=== PATIENT | male | born 1945 | race Caucasian/White ===

== ENCOUNTER 2022-07-04 17:57 | Emergency (ER) | payer SELFPAY ==
--- OUTSIDE RECORDS SUMMARY | 2022-07-04 18:02 | XMS REPORT | Continuity of Care Document ---
:1945 Author Organization [facility] t Address [address] [place] [address] Care Team Providers Name Role Phone Erna MATSON, Frank Wiggins Primary Care Physician [phone] Erna MATSON, Frank Wiggins Attending Clinician Abe MATSON, Ken Aranda Attending Clinician Reshma MATSON, Dillan Dukes Attending Clinician Paresh Santana LCSW Attending Clinician Unavailable Suzy Worley MA Attending Clinician Unavailable Yaz MATSON, Tesfaye Aranda Attending Clinician Tang Arroyo Attending Clinician ELIZABETH ONEAL Attending Clinician [phone] [facility], PROVIDER Attending Clinician Unavailable Diomedes Moss Attending Clinician DIOMEDES MOSS M.D. Attending Clinician Unavailable Bolivar Ace Attending Clinician DR ELIZABETH ONEAL Attending Clinician Unavailable HARLAN DAHL Attending Clinician Unavailable DR ELIZABETH ONEAL Admitting Clinician Unavailable Payers Payer Name Policy Type Policy Number Effective Date Expiration Date S ource Problems Condition Condition Condition Status Onset Resolution Last Treating Co mments Source Name Details Category Date Date Treatment Clinician Date Tremor Tremor Disease Active Methodi 08-10 00:00: Hospita 00 l Parkinson' Parkinson' Disease Active M ethodi s disease s disease 1-12 st 00:00: Hospita 00 l RIGHT HIP RIGHT HIP Diagnosis Active 2017-072018-05-13 Memoria PAIN PAIN 0-11 10:04:00 l Active 07:00: [place] 05/09/2018 00 [facility] M25.551 - M25.551 - Diagnosis Active 2018-05-06 Memoria PAIN IN PAIN IN - 13:04:00 l RIGHT HIP RIGHT HIP 00:01: Jamee taylor T84.84XA - T84.84XA - 00 P P Active 04/16/2018 [facility]ID [facility] M80.0 - M80.0 - Diagnosis Active 2018-05-09 Memoria AGE-RELATE AGE-RELATE 04-03 16:10:00 l D D 00:01: Savage OSTEOPOROS OSTEOPOROS 00 IS WITH IS WITH Active 04/03/2018 OPID [place] Malignant Malignant Disease Active Met hodi neoplasm neoplasm 8-14 st of of 00:00: Hospita prostate prostate 00 l 726.10 - 726.10 - Diagnosis Active 2012-02-07 Memoria ROTATOR ROTATOR 7-10 08:58:00 l CUFF SY CUFF SY 00:01: Savage Active 00 02/06/2012 [facility] Right hip Right hip Problem Active [facility] pain pain Physici ans Pain due Pain due Problem Active UT to hip to hip Physici joint joint ans prosthesis prosthesis History of History of Problem Resolve UT hepatitis hepatitis d Phys ici ans History of History of Problem Resolve UT malignant malignant d Phys ici neoplasm neoplasm ans Stiffness Problem 2018-12-30 Me moria of right Stiffness 11:44:42 l hip, not of right Mike n elsewhere hip, not classified elsewhere classified 12/30/2018 [facility] Psoas Psoas Problem Active UT tendinitis tendinitis Ph ysici , , ans unspecifie unspecifie d hip d hip Psoas Psoas Problem Active UT tendinitis tendinitis Ph ysici of right of right ans side side Muscle Muscle Problem 2018-12-30 Branden krystal weakness weakness 11:44:42 l [facility] 12/30/2018 [facility] & Joint Difficulty Difficult Problem 2018-12-30 Memoria in y in 11:44:42 l walking, walking, Mike n not not elsewhere elsewhere classified classified 9 [facility] Presence Presence Problem 2018-11-16 Memoria of of 12:02:13 l artificial artificial He rmann hip joint, hip joint, bilateral bilateral 11/16/2018 [facility] History of Past Illness Condition Condition Condition Status Onset Resolution Last Treating Co mments Source Name Details Category Date Date Treatment Clinician Date Pain in Pain in Problem 2017-072018-12-30 2018-12-30 Memoria right hip right hip 08-18 11:44:42 11:44:42 l 06/18/2018 06:21: Mike bailey 12/30/[address] [facility] Pain due Pain due Problem 2017-072018-11-16 2018-11-16 Memoria to to 0-05 12:02:13 12:02:13 l internal internal 04:38: Mike bailey orthopedic orthopedic 42 prosthetic prosthetic devices, devices, implants implants and and grafts, grafts, initial initial encounter encounter 05/03/2018 11/16/2018 [facility] Allergies, Adverse Reactions, Alerts This patient has no known allergies or adverse reactions. Family History Family Member Diagnosis Comments Start Date Stop Date Source Natural father Dementia [facility] Natural father Prostate cancer [facility] Natural mother COPD [facility] Natural mother Melanoma [facility] Father Family history of [facility] malignant neoplasm Social History Social Habit Start Date Stop Date Quantity Comments Source Tobacco use and 2022-04-10 2022-04-10 Smokeless tobacco Me [facility]ist exposure 00:00:00 00:00:00 non-user Hospital Alcohol intake 2022-04-10 2022-04-10 Current drinker [facility] dist 00:00:00 00:00:00 of alcohol Hospital (finding) Alcohol Comment 2018-03-11 2018-03-11 daily Jain 00:00:00 00:00:00 Hospital Sex Ass[birth year] At [birth year] M [facility]ain 00:00:00 00:00:00 Hospital Smoking Status Start Date Stop Date Source Unknown if ever smoked [facility] Never smoked tobacco [facility] Medications Ordered Filled Start Stop Current Ordering Indication Dosage Frequency Signature Comments Components Source Medication Medication Date Date Medication? Clinician (SIG) Name Name meloxicam Yes [id number] 15mg Q24H Take 1 Methodi (MOBIC) 15 [id number] tablet (15 s t mg tablet 00:00: mg total) Hos april 00 by mouth l daily as needed for moderate pain. carbidopa-l Yes 2 tab PO Me thodi evodopa 12-[address] (Sinemet) 00:00: Hospita 25-100 mg 00 l per tablet carbidopa-l 2021- No 0.5 tabs M ethodi evodopa 09-[address] (Sinemet) 00:00: 00:00 1 week, 1 Ho spita 25-100 mg 00 :00 tab PO BID l per tablet for 1 week, then 1 tab PO TID ibuprofen 2021- No 400mg QD Take 400 Me thodi (ADVIL,MOTR 08-[address] IN) 200 MG 10:55: 00:00 mouth Hospi ta tablet 44 :00 daily. l ibuprofen 2021- No Take by Meth consuelo (Motrin IB) 08-[address] 200 MG 10:55: 00:00 Hospita tablet 44 :00 l azithromyci No take 2 Acce ssH n 250 mg 4-17 tablets by ealth tablet 00:00: Oral route 00 1 time per day on day 1. Then 1 tab daily on day 2-5. Bromfed DM No take 10 Acce ssH 2 mg-30 4-17 milliliter ealth mg-10 mg/5 00:00: s by Oral mL oral 00 route syrup every 6 hours PRN cough/truong estion Motrin IB Motrin IB Yes UT 200 MG Oral 200 MG Oral P hysici Tablet Tablet ans Vital Signs Vital Name Observation Time Observation Value Comments Source Systolic blood 2022-04-10 128 mm[Hg] [facility] pressure 20:27:00 Diastolic blood 2022-04-10 79 mm[Hg] [facility] pressure 20:27:00 Heart rate 2022-04-10 63 /min [facility] 20:27:00 Respiratory rate 2022-04-10 20 /min [facility] 20:27:00 Body weight 2022-04-10 78.926 kg [facility] 20:27:00 BMI 2022-04-10 26.46 kg/m2 [facility] 20:27:00 Body temperature 2021-12-19 36.67 Ebony [facility] 15:44:00 Oxygen saturation in 2021-12-19 96 /min [facility] Arterial blood by 15:44:00 Pulse oximetry Body height 2021-09-20 172.7 cm [facility] 20:16:00 Height 2018-05-06 68 [in_us] [facility] 09:45:00 Weight 2018-05-06 172 [lb_av] [facility] 09:45:00 Body Mass Index 2018-05-06 26.15 kg/m2 [facility] Calculated 09:45:00 Height 2018-04-15 68 [in_us] [facility] 16:37:00 Weight 2018-04-15 172 [lb_av] [facility] 16:37:00 Body Mass Index 2018-04-15 26.15 kg/m2 [facility] Calculated 16:37:00 Body height 2017-11-13 68.00 [in_us] [facility] 11:46:00 Patient Body Weight 2017-11-13 182.60 [lb_av] [facility] 11:46:00 Intravascular 2017-11-13 112 mm[Hg] [facility] Systolic 11:46:00 Intravascular 2017-11-13 61 mm[Hg] [facility] Diastolic 11:46:00 Heart Beat 2017-11-13 75 /min [facility] 11:46:00 Body Temperature 2017-11-13 97.10 [degF] [facility] 11:46:00 Respiratory Rate 2017-11-13 18 /min [facility] 11:46:00 Body mass index 2017-11-13 27.80 kg/m2 [facility] 11:46:00 Body height 2016-01-11 68.00 [in_us] [facility] 11:48:00 Patient Body Weight 2016-01-11 188.60 [lb_av] [facility] 11:48:00 Intravascular 2016-01-11 137 mm[Hg] [facility] Systolic 11:48:00 Intravascular 2016-01-11 85 mm[Hg] [facility] Diastolic 11:48:00 Heart Beat 2016-01-11 64 /min [facility] 11:48:00 Body Temperature 2016-01-11 97.70 [degF] [facility] 11:48:00 Respiratory Rate 2016-01-11 16 /min [facility] 11:48:00 Body mass index 2016-01-11 28.70 kg/m2 [facility] 11:48:00 Body height 2015-12-06 68.00 [in_us] [facility] 10:18:00 Patient Body Weight 2015-12-06 190.00 [lb_av] [facility] 10:18:00 Intravascular 2015-12-06 126 mm[Hg] [facility] Systolic 10:18:00 Intravascular 2015-12-06 68 mm[Hg] [facility] Diastolic 10:18:00 Heart Beat 2015-12-06 65 /min [facility] 10:18:00 Body Temperature 2015-12-06 96.20 [degF] [facility] 10:18:00 Respiratory Rate 2015-12-06 16 /min [facility] 10:18:00 Body mass index 2015-12-06 28.90 kg/m2 [facility] 10:18:00 Procedures Procedure Date / Time Performing Clinician Source Performed NM BRAIN SPECT W I 123 2021-09-07 [facility] MRI BRAIN WO CONTRAST 2021-09-07 14:29:28 [facility] CERULOPLASMIN LEVEL 2021-08-17 15:00:00 [facility] COPPER LEVEL, SERUM 2021-08-17 15:00:00 [facility] US HEPATIC 2021-08-12 14:40:49 Frank Umanzor [facility] COMPREHENSIVE METABOLIC 2021-08-04 17:54[facility] PANEL GGT 2021-08-04 17:54:00 AudeliaFrank parker [facility] HEPATITIS ACUTE PANEL 2021-08-04 17:54:00 [facility] CBC WITH PLATELET AND 2021-08-04 17:54:00 [facility] DIFFERENTIAL XR KNEE AP STANDING 2021-07-07 16:27:04 Tesfaye Mukherjee [facility] BILATERAL XR KNEE 3 VW LEFT 2021-07-07 16:26[facility] [place] ARTHROCENTESIS 2021-07-07 16:00:00 Yaz Tesfaye [facility] ASPIR&/INJ MAJOR JT/BURSA W/O US Physical Therapy 2018-05-06 00:00:00 [facility] Bone scan 3 phase 2018-04-15 00:00:00 [facility] [id number] History of Hip [facility] Replacement History of Shoulder [facility] Plan of Care Planned Activity Planned Date Details Comments Source Future Scheduled 2022-06-01 HEPATITIS B VACCINES [facility] Test 05:03:20 (1 of 3 - 3-dose series) [code = HEPATITIS B VACCINES (1 of 3 - 3-dose series)] Future Scheduled 2022-06-01 SHINGLES VACCINES (1 [facility] Test 05:03:20 of 2) [code = SHINGLES VACCINES (1 of 2)] Future Scheduled 2022-06-01 65+ [facility] 05:[facility]20 VACCINE (1 - PCV) [code = 65+ PNEUMOCOCCAL VACCINE (1 - PCV)] Future Scheduled 2022-06-01 COVID-19 VACCINE (3 - [facility] Test 05:03:20 Pfizer risk series) [code = COVID-19 VACCINE (3 - Pfizer risk series)] Future Scheduled 2022-06-01 INFLUENZA VACCINE [facility] Test 05:03:20 [code = INFLUENZA VACCINE] Encounters Start End Encounter Admission Attending Care Care Encounter Source Date/Time Date/Time Type Type Clinicians Facility Department ID 2022-04-10 2022-04-10 Office Braunreiter 1.2.840.1 [id number] Methodi 15:30:00 16:29:17 Visit , Frank Wiggins 93963.1.1 555 s t 3.430.2.7 Hospit a .3.779896 l .8 2022-04-10 2022-04-10 Travel 1.2.840.1 1.2.018.581 [id number] Methodi 00:00:00 00:00:[address] 3.430.2.7 0.2.7.3.698 Ho spita .3.353608 084.8 l .8 2022-04-10 2022-04-10 Outpatient [facility] [id number] Peak 00:00:00 00:00:00 , FRANK [address] 2022-04-05 2022-04-05 Travel 1.2.840.1 1.2.355.242 [id number] Methodi 00:00:00 00:00:[address] 3.430.2.7 0.2.7.3.698 Ho spita .3.736912 084.8 l .8 2021-12-28 2021-12-28 [facility] Abe, 1.2.840.1 [id number] Methodi 10:25:00 10:45:14 ne Ken C. 28394.1.[address] 3.430.2.7 Hospit a .3.532004 l .8 2021-12-28 2021-12-28 Outpatient [facility] [id number] Peak 00:00:00 00:00:00 KEN [address] 2021-12-19 2021-12-19 [facility] 1.2.840.1 [id number] Methodi 10:30:00 11:55:42 Encounter Dillan Ernst 42238.1.[address] 3.430.2.7 Hospit a .3.922233 l .8 2021-12-19 2021-12-19 Travel 1.2.840.1 1.2.874.200 [id number] [id number] Methodi 00:00:00 00:00:[address] 3.430.2.7 0.2.7.3.698 Ho spita .3.312547 084.8 l .8 2021-12-19 2021-12-19 Outpatient [facility] [id number] Peak 00:00:00 00:00:00 DILLAN [address] 2021-09-22 2021-09-22 Social Esther, 1.2.840.1 [id number] Methodi 00:00:00 00:00:00 Work Paresh 19984.1.[address] 3.430.2.7 Hospit a .3.525998 l .8 2021-09-20 2021-09-20 Office [facility], 1.2.840.1 [id number] Methodi 14:10:00 14:40:03 Visit Ken Ayala50.1.[address] 3.430.2.7 Hospit a .3.422694 l .8 2021-09-20 2021-09-20 Travel 1.2.840.1 1.2.470.797 [id number] [id number] Methodi 00:00:00 00:00:[address] 3.430.2.7 0.2.7.3.698 spita .3.431379 084.8 l .8 2021-09-20 2021-09-20 [facility] [id number] Peak 00:00:00 00:00:[address] KEN [address] 2021-09-09 2021-09-09 Telephone Worley, 1.2.840.1 [id number] Methodi 00:00:00 00:00:[address] 3.430.2.7 Hospit a .3.915478 l .8 2021-09-07 2021-09-[address] [facility], 1.2.840.1 [id number] Methodi 14:25:56 23:59:00 Encounter Ken Aranda 44667.1.[address] 3.430.2.7 Hospit a .3.500679 l .8 2021-09-07 2021-09-[address] [facility], 1.2.840.1 [id number] Methodi 07:40:09 14:24:00 Encounter Ken Aranda 75183.1.[address] 3.430.2.7 Hospit a .3.468902 l .8 2021-09-07 2021-09-[address] [facility], 1.2.840.1 [id number] Methodi 07:39:55 07:39:55 Encounter Ken Aranda 68921.1.[address] 3.430.2.7 Hospit a .3.559698 l .8 2021-09-07 2021-09-07 Travel 1.2.840.1 1.2.868.782 1129 [id number] Methodi 00:00:00 00:00:[address] 3.430.2.7 0.2.7.3.698 spita .3.065231 084.8 l .8 2021-09-07 2021-09-07 Outpatient [facility] [id number] [address] [place] [address] 00:00:00 00:00:00 KEN [address] 2021-09-07 2021-09-07 [facility] [id number] [address] [place] [address] 00:00:00 00:00:00 KEN [address] 2021-09-07 2021-09-07 Outpatient [facility] [id number] [address] [place] [address] 00:00:00 00:00:00 KEN [address] 2021-08-25 2021-08-25 [facility], 1.2.840.1 [id number] Methodi 00:00:00 00:00:[address] 3.430.2.7 Hospit a .3.440088 l .8 2021-08-12 2021-08-12 [facility] 1.2.840.1 [id number] Methodi 08:10:44 23:59:00 Frank Lloyd 02842.1.[address] 3.430.2.7 Hospit a .3.117000 l .8 2021-08-12 2021-08-12 Travel 1.2.840.1 1.2.897.034 [id number] Methodi 00:00:00 00:00:[address] 3.430.2.7 0.2.7.3.698 Ho spita .3.557363 084.8 l .8 2021-08-12 2021-08-12 Outpatient [facility] [id number] Peak 00:00:00 00:00:00 FRANK [address] 2021-08-10 2021-08-10 Office [facility], 1.2.840.1 [id number] Methodi 12:55:00 13:27:13 Visit Ken Rosi 46090.1.[address] 3.430.2.7 Hospit a .3.548666 l .8 2021-08-10 2021-08-10 Travel 1.2.840.1 1.2.339.448 6345 [id number] Methodi 00:00:00 00:00:[address] 3.430.2.7 0.2.7.3.698 Ho spita .3.427121 084.8 l .8 2021-08-10 2021-08-10 Outpatient [facility] [id number] Peak 00:00:00 00:00:00 KEN [address] 2021-08-04 2021-08-04 Office [facility] 1.2.840.1 [id number] Methodi 10:20:00 11:34:08 Visit , Frank Wiggins 70458.1.1 752 s t 3.430.2.7 Hospit a .3.246921 l .8 2021-08-04 2021-08-04 Travel 1.2.840.1 1.2.039.542 3525 [id number] Methodi 00:00:00 00:00:[address] 3.430.2.7 0.2.7.3.698 Ho spita .3.061578 084.8 l .8 2021-08-04 2021-08-04 Outpatient [facility] [id number] Peak 00:00:00 00:00:00 FRANK [address] 2021-07-07 2021-07-07 Office Sitter, 1.2.840.1 [id number] Methodi 10:00:00 10:59:53 Visit Tesfaye ReinaCalderon 10870.1.1 130 s t 3.430.2.7 Hospit a .3.521623 l .8 2021-07-07 2021-07-07 Outpatient SITTER, [facility] [id number] Peak 00:00:00 00:00:00 TESFAYE 130 Method i 2021-07-07 2021-07-07 Outpatient SITTER, [facility] [id number] Peak 00:00:00 00:00:00 TESFAYE 857 Method i 2021-07-07 2021-07-07 Outpatient SITTER, [facility] [id number] 553 Peak 00:00:00 00:00:00 TESFAYE 868 Method i 2021-07-06 2021-07-06 Travel 1.2.840.1 1.2.117.471 [id number] Methodi 00:00:00 00:00:[address] 3.430.2.7 0.2.7.3.698 Ho spita .3.401015 084.8 l .8 2021-07-04 2021-07-04 Travel 1.2.840.1 1.2.183.865 8269 [id number] Methodi 00:00:00 00:00:[address] 3.430.2.7 0.2.7.3.698 Ho spita .3.569592 084.8 l .8 2021-06-20 2021-06-20 [facility] [id number] Peak 00:00:00 00:00:00 DILLAN 169 Method i 2021-05-03 2021-05-03 Outpatient [facility] [id number] Peak 00:00:00 00:00:00 083 Method i 2021-05-03 2021-05-03 [facility] [id number] Peak 00:00:00 00:00:00 DILLAN [address] 2021-05-02 2021-05-02 Outpatient [facility] [id number] 896 Peak 00:00:00 00:00:[address] 2021-04-29 2021-04-29 Outpatient RESHMA [facility] [id number] Peak 00:00:00 00:00:00 DILLAN [address] 2021-04-29 2021-04-29 Outpatient [facility] [id number] 896 Peak 00:00:00 00:00:[address] 2021-04-28 2021-04-28 Outpatient [facility] [id number] 896 Peak 00:00:00 00:00:[address] 2021-04-28 2021-04-28 Outpatient RESHMA [facility] [id number] Peak 00:00:00 00:00:00 DILLAN [address] 2021-04-27 2021-04-27 Outpatient [facility] [id number] 896 Peak 00:00:00 00:00:[address] 2021-04-26 2021-04-26 Outpatient [facility] [id number] 896 Peak 00:00:00 00:00:[address] 2021-04-25 2021-04-25 Outpatient [facility] [id number] 896 Peak 00:00:00 00:00:[address] 2021-04-22 2021-04-22 Outpatient [facility] [id number] Peak 00:00:00 00:00:[address] 2021-04-21 2021-04-21 Outpatient RESHMA, [facility] [id number] Peak 00:00:00 00:00:00 DILLAN [address] 2021-04-21 2021-04-21 Outpatient [facility] [id number] Peak 00:00:00 00:00:[address] 2021-04-20 2021-04-20 Outpatient [facility] [id number] 896 Peak 00:00:00 00:00:[address] 2021-04-19 2021-04-19 Outpatient [facility] [id number] 896 Peak 00:00:00 00:00:[address] 2021-04-18 2021-04-18 Outpatient [facility] [id number] 896 Peak 00:00:00 00:00:[address] 2021-04-15 2021-04-15 Outpatient [facility] [id number] 896 Peak 00:00:00 00:00:[address] 2021-04-15 2021-04-15 Outpatient RESHMA, [facility] [id number] Peak 00:00:00 00:00:00 DILLAN [address] 2021-04-14 2021-04-14 Outpatient [facility] [id number] 896 Peak 00:00:00 00:00:[address] 2021-04-13 2021-04-13 Outpatient [facility] [id number] 896 Peak 00:00:00 00:00:[address] 2021-04-12 2021-04-12 Outpatient [facility] [id number] 896 Peak 00:00:00 00:00:[address] 2021-04-11 2021-04-11 Outpatient [facility] [id number] 896 Peak 00:00:00 00:00:[address] 2021 2021 Outpatient [facility] [id number] 896 Peak 00:00:00 00:00:[address] 2021-04-07 2021-04-07 Outpatient [facility] [id number] 896 Peak 00:00:00 00:00:[address] 2021-04-07 2021-04-07 Outpatient RESHMA, [facility] [id number] Peak 00:00:00 00:00:00 DILLAN [address] 2021-04-06 2021-04-06 Outpatient [facility] [id number] 896 Peak 00:00:00 00:00:[address] 2021-04-05 2021-04-05 Outpatient [facility] [id number] 896 Peak 00:00:00 00:00:[address] 2021-04-01 2021-04-01 Outpatient [facility] [id number] 896 Peak 00:00:00 00:00:[address] 2021-03-31 2021-03-31 Outpatient [facility] [id number] 896 Peak 00:00:00 00:00:[address] 2021-03-31 2021-03-31 Outpatient RESHMA [facility] [id number] Peak 00:00:00 00:00:00 DILLAN [address] 2021-03-30 2021-03-30 Outpatient RESHMA [facility] [id number] 424 Peak 00:00:00 00:00:00 DILLAN [address] 2021-03-30 2021-03-30 Outpatient [facility] [id number] 896 Peak 00:00:00 00:00:[address] 2021-03-29 2021-03-29 Outpatient [facility] [id number] 896 Peak 00:00:00 00:00:[address] 2021-03-28 2021-03-28 Outpatient [facility] [id number] 896 Peak 00:00:00 00:00:[address] 2021-03-25 2021-03-25 Outpatient [facility] [id number] 896 Peak 00:00:00 00:00:[address] 2021-03-24 2021-03-24 Outpatient [facility] [id number] 896 Peak 00:00:00 00:00:[address] 2021-03-24 2021-03-24 Outpatient RESHMA [facility] [id number] 479 Peak 00:00:00 00:00:00 DILLAN [address] 2021-03-23 2021-03-23 Outpatient [facility] [id number] 896 Peak 00:00:00 00:00:[address] 2021-03-22 2021-03-22 Outpatient [facility] [id number] 896 Peak 00:00:00 00:00:[address] 2021-03-21 2021-03-21 Outpatient [facility] [id number] 896 Peak 00:00:00 00:00:[address] 2021-03-18 2021-03-18 Outpatient [facility] [id number] 896 Peak 00:00:00 00:00:[address] 2021-03-17 2021-03-17 Outpatient [facility] [id number] 896 Peak 00:00:00 00:00:[address] 2021-03-17 2021-03-17 Outpatient SHKEDY, [facility] [id number] 541 Peak 00:00:00 00:00:00 DILLAN [address] 2021-03-16 2021-03-16 Outpatient [facility] [id number] 896 Peak 00:00:00 00:00:[address] [facility] [address] [facility] 2021-03-15 2021-03-15 Outpatient [facility] [id number] [place] 00:00:00 00:00:[address] [facility] [address] [facility] 2021-03-14 2021-03-14 Outpatient [facility] [id number] 896 [place] 00:00:00 00:00:[address] [facility] [address] [facility] 2021-03-11 2021-03-11 Outpatient [facility] [id number] 896 [place] 00:00:00 00:00:[address] [facility] [address] [facility] 2021-03-10 2021-03-10 Outpatient [facility] [id number] 896 [place] 00:00:00 00:00:[address] [facility] [address] [facility] 2021-03-10 2021-03-10 Outpatient SHKEDY, [facility] [id number] 086 [place] 00:00:00 00:00:00 DILLAN [address] [facility] 2021-03-09 2021-03-09 Outpatient [facility] [id number] 896 [place] 00:00:00 00:00:[address] [facility] [address] [facility] 2021-03-01 2021-03-02 Outpatient SHKEDY, [facility] [id number] [address] 00:00:00 00:00:00 DILLAN [address] [facility] 2021-03-01 2021-03-01 Outpatient SHKEDY, [facility] [id number] [address] 00:00:00 00:00:00 DILLAN [address] [facility] 2021-01-19 2021-01-19 Outpatient SHKEDY, [facility] [id number] [address] 00:00:00 00:00:00 DILLAN [address] [facility] 2021-01-12 2021-01-12 Outpatient SHKEDY, [facility] [id number] [address] 00:00:00 00:00:00 [place] [address] [facility] 2021-01-12 2021-01-12 Outpatient SHKEADORE, [facility] [id number] [place] 00:00:00 00:00:00 DILLAN 848 Method i 2021-01-04 2021-01-04 Outpatient SHMAGALI, [facility] [id number] 00:00:00 00:00:00 DILLAN [address] 2021-01-04 2021-01-04 Outpatient SHMAGALI, [facility] [id number] 00:00:00 00:00:00 DILLAN [address] 2020-06-03 2020-06-04 Outpt Diag nullFlavo [facility] [id number] Memoria 21:33:00 05:59:00 Services r Outpatient 03 l Imaging [place] 2020-06-03 2020-06-04 Outpt Diag nullFlavo [facility] [id number] Memoria 21:33:00 05:59:00 Services r Outpatient 03 l Imaging [place] 2020-06-03 2020-06-03 Outpatient Cruz, MH29 [id number] 15:33:00 23:59:00 Beckwith Naweed 03 2018-09-24 2018-09-24 Outpatient ELIZABETH ONEAL [facility] [id number] AccessH 00:00:00 00:00:00 e9-44df-910 i54-0415-p [facility] 4-5m5o0oi93 ca2-76444a c82 2fdc3f 2018-09-03 2018-09-03 Outpatient [facility] 149 [id number] Access 00:00:00 00:00:00 H, PROVIDER vero [facility] 2018-09-03 2018-09-03 Outpatient [facility] [id number] AccessH 00:00:00 00:00:00 H, PROVIDER e2-0df2-77s ec7-48 f9-b [facility] 0-gm6wbc053 f2l-558i15 0f4 5bd3da 2018-09-03 2018-09-03 Outpatient ELIZABETH ONEAL [facility] apfd11wc-l0 [id number] AccessH 00:00:00 00:00:00 e9-44df-910 97d-43cb-8 [facility] 4-0j3h2ut54 e52-s765qm c82 7d6a94 2018-05-13 2018-06-12 OP Therapy nullFlavo [facility] [id number] Memoria 13:30:00 05:59:00 Patients r Man Wan 2018-05-13 2018-06-12 OP Therapy nullFlavo SMR [id number] Memoria 13:30:00 05:59:00 Patients r Man 01 gigi [place] 2018-05-13 2018-06-11 Outpatient Hola, 2.16.840. 2.16.840.1 . [id number] 08:30:00 23:59:00 Diomedes [id number] 3.615.70 5.70 2018-05-06 2018-05-06 Appointqasim [facility] [id number] [place] 09:15:00 09:15:00 t; Quentin GASPAR [facility] patrizia GASPAR M.D. 2018-04-29 2018-04-30 Outpt Diag nullFlavo [facility] [id number] Memoria 13:50:00 04:59:00 Services r Outpatient 02 l [facility] 2018-04-29 2018-04-30 Outpt Diag nullFlavo [facility] [id number] Memoria 13:50:00 04:59:00 Services r Outpatient 02 l [facility] 2018-04-29 2018-04-29 Outpatient Hola, 2.16.840. 2.16.840.1 . [id number] 08:50:00 23:59:00 Diomedes [id number] 3.615.30 5.30 2018-04-15 2018-04-[facility] [id number] [place] 10:30:00 10:30:00 t; Quentin GASPAR [facility] patrizia GASPAR M.D. 2018 2018 Outpt Diag nullFlavo [facility] [id number] Memoria 14:20:00 14:20:00 Services r Outpatient 01 l [facility] 2018 2018 Outpt Diag nullFlavo [facility] [id number] Memoria 14:20:00 14:20:00 Services r Outpatient 01 l Imaging [place] 2018 2018 Outpatient Db, MH29 MH29 [id number] 09:20:00 09:20:00 Bolivar Villatoro 2017-11-14 2017-11-14 Outpatient [facility] 149 [id number] AccessH 00:00:00 00:00:00 H, PROVIDER ea lth 2017-11-14 2017-11-14 Outpatient [facility] [id number] [id number] AccessH 00:00:00 00:00:00 H, PROVIDER e2-8uj8-15n 3b1-40 51-a ealth 0-hj8vnr219 284-597ffb 0f4 [id number] 2017-11-14 2017-11-14 Outpatient ELIZABETH ONEAL [facility] yvwv13ep-[id number] AccessH 00:00:00 00:00:00 e9-44df-910 t1a-5p68-9 ealth 4-1i4h7zx00 a2u-7k1fq1 c82 0dd0eb 2017-11-14 2017-11-14 Outpatient KIMMY, ELIZABETH [facility] 0kg9s4d8-4u [id number] AccessH 00:00:00 00:00:00 e2-8ns9-57p 083-43ba-9 ealth 0-ts1gtf507 w0k-56242w 0f4 29c2ea 2017-11-13 2017-11-13 Outpatient ELIZABETH FARLEY [facility] RAD 1000 [id number] [place] 12:25:00 23:59:00 Medica l Center 2017-11-13 2017-11-13 Outpatient LEIZABETH ONEAL [facility] 1oc2z3u7-3q [id number] AccessH 11:46:00 11:46:00 e2-7eb0-57o r87-71tb-7 ealth 0-vj9lzd617 99b-edccbe 0f4 [id number] 2017-11-13 2017-11-13 Outpatient [facility] 149 [id number] AccessH 00:00:00 00:00:00 H, PROVIDER vero [facility] 2017-11-13 2017-11-13 Outpatient [facility] 4fk2l1r4-1e [id number] AccessH 00:00:00 00:00:00 H, PROVIDER e2-2ow7-56m fc3-41 43-b ealth 0-mb7szs598 8k8-2899rv 0f4 e02be6 2017-11-13 2017-11-13 Outpatient SHANKS, [facility] 7ti4a2j9-3d c7b [id number] AccessH 00:00:00 00:00:00 HARLAN e2-5yo9-39n bf8-48fc-9 ealt 0-us0fdw385 217-58b7a3 0f4 134ed0 2016-05-03 2016-05-03 Outpatient [facility] 149 [id number] AccessH 00:00:00 00:00:00 H, PROVIDER vero [facility] 2016-05-03 2016-05-03 Outpatient [facility] 5mt1o7l2-6y [id number] AccessH 00:00:00 00:00:00 H, PROVIDER perry-4xi0-31t 041-47 3e-b ealth 0-eq6chn933 a10-44x0o2 0f4 fcf67b 2016-05-02 2016-05-02 Outpatient SHANKS, [facility] 6ok4q1a8-7w [id number] [id number] AccessH 00:00:00 00:00:00 HARLAN e2-6tx6-30i l7q-997v-9 ealth 0-rk4vpt756 4s1-99aw72 0f4 hx556n 2016-04-29 2016-04-29 Outpatient SHANKS, HC 0fq8z3u9-7e [id number] AccessH 00:00:00 00:00:00 HARLAN e2-1ar8-88q 54a-459c-a ealth 0-ck2vom252 41f-3p464b 0f4 2c0ed0 2016-04-26 2016-04-26 Outpatient [facility] 149 [id number] AccessH 00:00:00 00:00:00 H, PROVIDER vero [facility] 2016-04-26 2016-04-26 Outpatient SHANKS, [facility] 6xg2i1n9-7d [id number] AccessH 00:00:00 00:00:00 HARLAN e2-8fc6-92a 0v0-7uq7-e ealth 0-ws6nro744 b68-l8f71a 0f4 9e81a6 2016-04-26 2016-04-26 Outpatient [facility] 1hk4l5c9-2i [id number] AccessH 00:00:00 00:00:00 H, PROVIDER e2-2mp1-26c 18f-4f 2f-8 ealth 0-st9tbg994 905-4ih399 0f4 11ccb4 2016-01-17 2016-01-17 Outpatient [facility] 149 [id number] AccessH 00:00:00 00:00:00 H, PROVIDER vero [facility] 2016-01-17 2016-01-17 Outpatient [facility] 7ix0h6e4-1h [id number] AccessH 00:00:00 00:00:00 H, PROVIDER e2-4vz8-72y e3f-42 4e-8 ealth 0-jz4ifq829 [id number] 0f4 385e2a 2016-01-17 2016-01-17 Outpatient SHANKS, [facility] 9tx2g2v8-5i b89 [id number] AccessH 00:00:00 00:00:00 HARLAN e2-2xm5-05b 6bf-45e9-a ealth 0-mg4bsf089 1a6-213rv8 0f4 g5126c 2016-01-14 2016-01-14 Outpatient SHANKS, [facility] 3eb8l9f7-5z a24 33l3b-6 AccessH 00:00:00 00:00:00 HARLAN e2-7fh8-58x 160-4db9-b ealth 0-lu0ovb441 7t2-4727v4 0f4 df3d09 2016-01-12 2016-01-12 Outpatient [facility] 149 [id number] AccessH 00:00:00 00:00:00 H, PROVIDER vero [facility] 2016-01-12 2016-01-12 Outpatient [facility] 1bg0r1h5-6z [id number] AccessH 00:00:00 00:00:00 H, PROVIDER e2-4qp9-16i 504-46 67-a ealth 0-as4gos519 761-d32aa1 0f4 94a1e9 2016-01-12 2016-01-12 Outpatient SHANKS, [facility] 9bv8y1y4-9b 3fd r3rj3-0 AccessH 00:00:00 00:00:00 HARLAN e2-2fa2-47t b71-8s96-0 ealth 0-bq0qfr094 370-acaebf 0f4 430a97 2016-01-11 2016-01-11 Outpatient SHANKS, [facility] 6yb5y3g4-4j marcelo p4347-r AccessH 11:48:00 11:48:00 HARLAN e2-8qq9-33i 495-4663-a ealth 0-gr7ysz933 2df-e90b07 0f4 [id number] 9703-06-14 2016-01-11 Outpatient [facility] 149 [id number] AccessH 00:00:00 00:00:00 H, PROVIDER vero [facility] 2016-01-11 2016-01-11 Outpatient [facility] 8zr3g6o9-0m [id number] AccessH 00:00:00 00:00:00 H, PROVIDER e2-7gw0-02z c58-4f a2-b ealth 0-bp0uml141 f39-h72116 0f4 5g656b 2015-12-06 2015-12-06 Outpatient SHANKS, [facility] 1sg1i9i6-4r e55 [id number] AccessH 10:18:00 10:18:00 HARLAN e2-0ut6-26u 862-4253-9 ealth 0-ji2mxb972 3g7-w55uz7 0f4 w32453 2015-12-06 2015-12-06 Outpatient [facility] 149 [id number] AccessH 00:00:00 00:00:00 H, PROVIDER vero sheppard 2015-12-06 2015-12-06 Outpatient [facility] 7vl1j4x8-4i [id number]-l AccessH 00:00:00 00:00:00 H, PROVIDER sarah7cv8-87r 287-48 51-b [facility] 0-bj1jlu283 699-966a30 0f4 305dde 2013-11-19 2013-11-19 Outpatient [facility] 149 [id number] AccessH 00:00:00 00:00:00 H, PROVIDER vero sheppard 2013-11-19 2013-11-19 Outpatient [facility] 0lb7y7c1-7n [id number] AccessH 00:00:00 00:00:00 H, PROVIDER sarah4kv5-42x c69-49 ef-9 [facility] 0-qt7flb606 n2j-tny8ln 0f4 z22080 2013-03-06 2013-03-06 Outpatient [facility] 149 [id number] AccessH 00:00:00 00:00:00 H, PROVIDER vero sheppard 2013-03-06 2013-03-06 Outpatient [facility] 3is8h2a0-1i [id number] AccessH 00:00:00 00:00:00 H, PROVIDER sarah9fb2-99t ebd-4e 26-b [facility] 0-hs8mru312 a54-j5679p 0f4 4ad3a7 2013-02-14 2013-02-14 Outpatient [facility] 149 [id number] AccessH 00:00:00 00:00:00 H, PROVIDER vero sheppard 2013-02-14 2013-02-14 Outpatient [facility] 9tn7l8m4-6f [id number]-f AccessH 00:00:00 00:00:00 H, PROVIDER immanuel2kn5-04c 3ee-44 02-8 [facility] 0-tt3udd466 q57-28955g 0f4 d64a07 2013-02-12 2013-02-12 Outpatient [facility] 149 [id number] AccessH 00:00:00 00:00:00 H, PROVIDER vero sheppard 2013-02-12 2013-02-12 Outpatient [facility] 6oq4n4m5-6h [id number] AccessH 00:00:00 00:00:00 H, PROVIDER e2-0kn9-76y e12-41 d5-a [facility] 0-vm5vjr444 673-k2481t 0f4 f04dc3 2013-02-11 2013-02-11 Outpatient [facility] 149 [id number] AccessH 00:00:00 00:00:00 H, PROVIDER ea [facility] 2013-02-11 2013-02-11 Outpatient [facility] 2gy1i3g7-0n [id number]-m AccessH 00:00:00 00:00:00 H, PROVIDER e2-2to1-57x ba4-4c db-9 [facility] 0-aa0qkz104 271-c5cc42 0f4 fq607x 2012-02-07 2012-02-07 OD JADA ANDREW [id number] Memoria 08:49:00 08:49:00 00 gigi Wan 2012-02-07 2012-02-07 OD [facility] [id number] Memoria 08:49:00 08:49:00 00 gigi Wan Results Test Description Test Time Test Comments Results Result Comments Source Ceruloplasmin level 2021-08-24 04:15:00 Test Item Value Reference Range Interpretation Comme nts Ceruloplasmin (test code = 2064-4) 35 mg/dL 18-36 RAC (test code = RAC) Performing Organization Information: Site ID: Name: [facility] Address: [address] [place] [address] Director: Dr. Jamal Rouse [facility], [id number] 04:15:00 Test Item Value Reference Range Interpretation Comments Copper (test See_Comment This test was code = developed and i ts 5631-7) analytical perf ormance characteristics have been determined by [employer] . It has not been cl eared or approved by theA. This assay has been validated pursu ant to the CLIA regula tions and is used for clinical purpos es. [Automated mess age] The system [employer] generated this result transmitted ref erence range: 70 - 175 mcg/dL. The ref erence range was not u sed to interpret this result as normal/abnor mal. RAC (test Performing code = RAC) Organization Information: Site ID: [facility] Name: [facility] Address: [address] [place] [address] Director: Andrea Zhang M.D. [facility] [id number] 14:11:00 Test Item Value Reference Interpretation Comments Range Glucose (test code = 95 mg/dL 65-99 2345-7) BUN (test code = 23 mg/dL 8-27 3094-0) Creatinine (test 0.72 mg/dL 0.76-1.27 L code = 2160-0) EGFR Non-Afr. 91 mL/min/1.73 See_Comment [Automated message] Indian (test code The syst em which = 2775) generated this result transmit ross reference range : >=59. The refer ence range was not u sed to interpret th is result as normal/abnormal . EGFR 105 mL/min/1.73 See_Comment In accorda nce with Indian (test code recommen dations from = 2774) the NKF-ASN Tas k force, [facility] is in the process of updating its eG FR calculation to the 2020 CKD-EPI creatinine equa tion that estimates kidney function without a race variable. [Auto mated message] The sy stem which generated this result transmit ross reference range : >=59. The refer ence range was not u sed to interpret th is result as normal/abnormal . BUN/creatinine ratio 10-24 H (test code = 3097-3) Sodium (test code = 143 mmol/L 109-380 8091-2) Potassium (test code 4.4 mmol/L 3.5-5.2 = 2823-3) Chloride (test code 105 mmol/L 96-106 = 2075-0) CO2 (test code = 22 mmol/L 20-29 2027-9) Calcium (test code = 9.4 mg/dL 8.6-10.2 42498-7) Protein (test code = 7.0 g/dL 6.0-8.5 2885-2) Albumin, S (test 4.3 g/dL 3.7-4.7 code = 1751-7) Globulin, total 2.7 g/dL 1.5-4.5 (test code = 64067-0) Albumin/globulin 1.2-2.2 ratio (test code = 1759-0) Total bilirubin 0.5 mg/dL 0.0-1.2 (test code = 1975-2) Alkaline phosphatase See_Comment Plea se note (test code = 6768-6) referen ce interval change [Autom ated message] The sy stem which generated this result transmit ross reference range : 44 - 121 IU/L. The reference range was not used to interpret this result as normal/abnormal . AST (test code = See_Comment [Automated message] 1920-8) The system [employer] generated this result transmit ross reference range : 0 - 40 IU/L. The reference range was not used to interpret this result as normal/abnormal . ALT (test code = See_Comment [Automated message] 1742-6) The system [employer] generated this result transmit ross reference range : 0 - 44 IU/L. The reference range was not used to interpret this result as normal/abnormal . PAUL (test code = Performed at: 01 PAUL) - [facility] [address] [id number] Director: Jose Medina MD, Phone: [phone] Lab Interpretation Abnormal (test code = 25544-6) [facility]2022-01-07 14:11:00 Test Item Value Reference Range Interpretation Comments GGT (test code See_Comment [Automated m essage] = 8794-2) The system [employer] generated this result transmit ross reference range : 0 - 65 IU/L. The reference range was not used to interpret this result as normal/abnormal . PAUL (test code Performed at: - = PAUL) [facility] [address] [id number] Director: Jose Medina MD, Phone: [phone] [facility] with platelet and pyffpgcbqktr5809-39-62 14:11:00 Test Item Value Reference Range Interpretation Comments WBC (test code = See_Comment [Automated 0590-2) message] The system which generated this result transmitted reference range : 3.4 - 10.8 x10E3/uL. The reference range was not used to interpret this result as normal/abnormal . RBC (test code = See_Comment [Automated 789-8) message] The system which generated this result transmitted reference range : 4.14 - 5.80 x10E6/uL. The reference range was not used to interpret this result as normal/abnormal . HGB (test code = 13.4 g/dL 13.0-17.7 718-7) HCT (test code = 39.0 % 37.5-51.0 4544-3) MCV (test code = 91 fL 79-97 787-2) MCH (test code = 31.2 pg 26.6-33.0 785-6) MCHC (test code = 34.4 g/dL 31.5-35.7 786-4) RDW (test code = 12.5 % 11.6-15.4 788-0) Platelet count (test See_Comment L [Autom ated code = 777-3) message] The system which generated this result transmitted reference range : 150 - 450 x10E3/uL. The reference range was not used to interpret this result as normal/abnormal . Neutrophils (test 79 % Not Estab. code = 770-8) Lymphocytes (test 10 % Not Estab. code = 736-9) Monocytes (test code 7 % Not Estab. = 5905-5) Eosinophils (test 3 % Not Estab. code = 713-8) Basophils (test code 0 % Not Estab. = 706-2) Neutrophils, absolute See_Comment [Auto mated (test code = 751-8) message] The system which generated this result transmitted reference range : 1.4 - 7.0 x10E3/uL. The reference range was not used to interpret this result as normal/abnormal . Lymphocytes, absolute See_Comment L [Auto mated (test code = 731-0) message] The system which generated this result transmitted reference range : 0.7 - 3.1 x10E3/uL. The reference range was not used to interpret this result as normal/abnormal . Monocytes, absolute See_Comment [Automa ross (test code = 742-7) message] The system which generated this result transmitted reference range : 0.1 - 0.9 x10E3/uL. The reference range was not used to interpret this result as normal/abnormal . Eosinophils, absolute See_Comment [Auto mated (test code = 711-2) message] The system which generated this result transmitted reference range : 0.0 - 0.4 x10E3/uL. The reference range was not used to interpret this result as normal/abnormal . Basophils, absolute See_Comment [Automa ross (test code = 704-7) message] The system which generated this result transmitted reference range : 0.0 - 0.2 x10E3/uL. The reference range was not used to interpret this result as normal/abnormal . Immature granulocytes 1 % Not Estab. (test code = 98813-3) Immature See_Comment [Automated granulocytes, message] The absolute (test code = system which 84528-0) generated this result transmitted reference range : 0.0 - 0.1 x10E3/uL. The reference range was not used to interpret this result as normal/abnormal . PAUL (test code = PAUL) Performed at: 01 - [facility] [id number] Director: Jose Medina MD, Phone: [phone] Lab Interpretation Abnormal (test code = 72559-2) [facility] acute [id number] 14:11:00 Test Item Value Reference Range Interpretation Comments Hepatitis A IgM Negative Negative (test code = 94625-4) Hepatitis B surface Negative Negative Ag (test code = 5196-1) Hepatitis B core IgM Negative Negative (test code = 21855-7) Hepatitis C Ab (test >11.0 See_Comment H Negat selvin: < 0.8 code = 84078-5) Indeterminat e: 0.8 - 0.9 Positive: > 0.9 The CDC recommends that a positive HCV antibody result be followed up wit h a HCV Nucleic Aci d Amplification t est (722905).Effe ctiv e October 10 2 Hepatitis Panel (4) will be made non-orderable. [employer] offers order code 1440 00 Acute Hepatitis . [Automated mess age] The system whic h generated this result transmit ross reference range : 0.0 - 0.9 s/co ratio. The reference range was not used to interpret this result as normal/abnormal . PAUL (test code = Performed at: PAUL) - [facility] [place], [place] [id number] Director: Jose Medina MD, Phone: [phone] Lab Interpretation Abnormal (test code = 56089-1) [facility] [id number] 12:50:32PA and lateral chest, 2 views.Location code: [id number] HISTORY: R05: COUGHCOMPARISON: NoneCOMMENTS:The lungs are clear and well inflated. The costophrenic angles aresharp. The cardiomediastinal silhouette is unremarkable. The bones are intact.IMPRESSION: No acute abnormality
[2022-07-04] MEDS ORDERED: HYDROCODONE/APAP 5/325 MG TAB ONE (18:23)
--- NOTE | 2022-07-04 18:40 | RAD REPORT ---
EXAM DESCRIPTION: RAD - Pelvis - 07/04/2022 6:21 pm CLINICAL HISTORY: Pelvic pain FINDINGS: Bilateral hip arthroplasties. Left femoral prosthesis is dislocated superior laterally. No fracture noted
[2022-07-04] MEDS ORDERED: MIDAZOLAM HCL 2 MG/2 ML INJ ONE ×2 (19:31→19:59)
[2022-07-04] MEDS ORDERED: ETOMIDATE 20 MG/10 ML VIAL IV ONE (19:32)
[2022-07-04] MEDS ORDERED: ONDANSETRON 4 MG/2 ML VIAL ONE (19:32)
[2022-07-04] MEDS ORDERED: NA CHLORIDE 0.9% 1,000 ML ONE (19:32)
--- NOTE | 2022-07-04 21:02 | EDPHYS ---
Physician Documentation [facility] Name: Ghassan Soria Age: 77 yrs Sex: Male : 1945 Arrival Date: 07/04/2022 Time: 18:05 Bed 9 Private MD: ED Physician HPI: 07/04 18:05 This 77 yrs old Male presents to ER via Unassigned with complaints of Hip Pain. snw 18:05 The patient or guardian reports decreased range of motion, pain. that occurred at home, snw sustained from pt had bilateral hip replacements at age 49yr. Pt was sitting in chair and felt like left hip came out The patient is not able to ambulate. Patient is not able to bear weight. The complaints affect the left leg. Onset: The symptoms/episode began/occurred suddenly, just prior to arrival. Associated signs and symptoms: Loss of consciousness: the patient experienced no loss of consciousness, Pertinent negatives: incontinence, weakness, trauma. Severity of symptoms: At their worst the symptoms were mild, moderate. The patient has experienced a previous episode, approximately 15 years ago. The patient has not recently seen a physician. Historical: - Allergies: 18:08 No Known Allergies; ss - PMHx: 18:08 Parkinson's disease; ss - PSHx: 18:08 bilateral hip replacement; ss - Immunization history:: Adult Immunizations unknown. - Social history:: Smoking status: Patient denies any tobacco usage or history of. ROS: 18:10 Constitutional: Negative for fever, chills, and weight loss, Eyes: Negative for injury, snw pain, redness, and discharge, ENT: Negative for injury, pain, and discharge, Neck: Negative for injury, pain, and swelling, Cardiovascular: Negative for chest pain, palpitations, and edema, Respiratory: Negative for shortness of breath, cough, wheezing, and pleuritic chest pain, Abdomen/GI: Negative for abdominal pain, nausea, vomiting, diarrhea, and constipation, Back: Negative for injury and pain, : Negative for injury, bleeding, discharge, and swelling, MS/Extremity: Negative for injury and deformity, felt like left hip replacement dislocated while sitting in his chair Skin: Negative for injury, rash, and discoloration, Neuro: Negative for headache, weakness, numbness, tingling, and seizure, Psych: Negative for depression, anxiety, suicide ideation, homicidal ideation, and hallucinations. Exam: 18:09 Constitutional: This is a well developed, well nourished patient who is awake, alert, snw and in no acute distress. Head/Face: Normocephalic, atraumatic. Eyes: Pupils equal round and reactive to light, extra-ocular motions intact. Lids and lashes normal. Conjunctiva and sclera are non-icteric and not injected. Cornea within normal limits. Periorbital areas with no swelling, redness, or edema. ENT: Nares patent. No nasal discharge, no septal abnormalities noted. Tympanic membranes are normal and external auditory canals are clear. Oropharynx with no redness, swelling, or masses, exudates, or evidence of obstruction, uvula midline. Mucous membranes moist. Neck: Trachea midline, no thyromegaly or masses palpated, and no cervical lymphadenopathy. Supple, full range of motion without nuchal rigidity, or vertebral point tenderness. No Meningismus. Chest/axilla: Normal chest wall appearance and motion. Nontender with no deformity. No lesions are appreciated. Cardiovascular: Regular rate and rhythm with a normal S1 and S2. No gallops, murmurs, or rubs. Normal PMI, no JVD. No pulse deficits. Respiratory: Lungs have equal breath sounds bilaterally, clear to auscultation and percussion. No rales, rhonchi or wheezes noted. No increased work of breathing, no retractions or nasal flaring. Abdomen/GI: Soft, non-tender, with normal bowel sounds. No distension or tympany. No guarding or rebound. No evidence of tenderness throughout. Back: No spinal tenderness. No costovertebral tenderness. Full range of motion. Skin: Warm, dry with normal turgor. Normal color with no rashes, no lesions, and no evidence of cellulitis. Neuro: Awake and alert, GCS 15, oriented to person, place, time, and situation. Cranial nerves II-XII grossly intact. Motor strength 5/5 in all extremities. Sensory grossly intact. Cerebellar exam normal. Normal gait. Psych: Awake, alert, with orientation to person, place and time. Behavior, mood, and affect are within normal limits. 18:09 Musculoskeletal/extremity: Extremities: grossly normal except: noted in the left hip: decreased ROM, ROM: limited active range of motion due to pain, limited passive range of motion due to pain, Circulation is intact in all extremities. Sensation intact. Vital Signs: 18:05 BP 120 / 71; Pulse 63; Resp 18; Temp 98.1(O); Pulse Ox 100% on R/A; Weight 74.84 kg; ss 18:33 BP 124 / 65; Pulse 64; Resp 16; Pulse Ox 100% on R/A; em6 20:30 BP 120 / 66; Pulse 68; Resp 16; Pulse Ox 100% on 3 lpm NC; em6 21:00 BP 116 / 68; Pulse 70; Resp 16; Pulse Ox 100% on R/A; em6 Procedures: 20:18 Reduction: of the left hip, using traction, manipulation, Patient tolerated well. Post snw reduction film - reveals normal alignment. per Dr. Stock. Moderate sedation: Pre-procedure assessment: the patient has been NPO 18 hour(s) prior to arrival, Monitoring during procedure: environmental monitoring technician, continuous pulse oximetry, nurse at bedside at all times, Medications employed: Etomidate, Versed, 4 mg(s), Post-procedure assessment: the patient is mildly sedated, Respiratory status: even and unlabored, a reversal agent was not used. MDM: 18:05 Patient medically screened. snw 19:22 Data reviewed: vital signs, nurses notes. Data interpreted: Pulse oximetry: on room air snw is 100 %. Interpretation: normal. Counseling: I had a detailed discussion with the patient and/or guardian regarding: the historical points, exam findings, and any diagnostic results supporting the discharge/admit diagnosis. 19:23 Physician consultation: Raf Stock MD was called at 18:45, was contacted at snw 19:00, regarding discussed x-ray findings of dislocation of left mechanical hip. Pt to have conscious sedation for Dr. Stock to perform reduction , in the emergency department to see patient at 19:45. 20:00 ED course: Telemetry monitors on, suction at bedside, O2 at 2L via N/C placed. Dr. herrera Azul and Dr. Stock at bedside. Conscious sedation begun post consent. Left hip manipulated per Dr. Stock, leg lengthened and with full ROM. Post reduction x-ray obtained. + reduction accomplish. RT at bedside with pt. . 20:18 Special discussion: Based on the history and exam findings, there is no indication for snw further emergent testing or inpatient evaluation. I discussed with the patient/guardian the need to see the orthopedic surgeon for further evaluation of the symptoms. 21:40 ED course: in discussion of case, pt actually rec'd all 6mg versed taken to room and a snw total of 11mg etomidate. 07/04 18:08 Order name: XRAY Pelvis; Complete Time: 18:40 snw 07/04 20:55 Order name: Hip Left 1 View EDMS 07/04 19:17 Order name: Conscious Sedation; Complete Time: 19:47 snw 07/04 19:17 Order name: Surgical Consent; Complete Time: 19:47 snw 07/04 19:17 Order name: IV Saline Lock; Complete Time: 19:47 snw 07/04 19:22 Order name: Suction; Complete Time: 19:47 snw 07/04 19:22 Order name: Oxygen Per Protocol; Complete Time: 19:47 snw 07/04 21:01 Order name: Misc. Order: Ambulate with assistance; Complete Time: 21:22 snw Administered Medications: 18:33 Not Given (Patient Refused): Sims (HYDROcodone-acetaminophen) 5 mg-325 mg 1 tabs PO em6 once 19:40 Drug: Zofran (Ondansetron) 4 mg Route: IVP; Site: left antecubital; em6 20:39 Follow up: Response: No adverse reaction em6 19:40 Drug: NS 0.9% 1000 ml Route: IV; Rate: 75 ml/hr; Site: left antecubital; em6 20:38 Follow up: Response: No adverse reaction; IV Status: Completed infusion; IV Intake: em6 1000ml ; Dr. elder ramos order to give the fluids bolus. 19:56 Drug: Midazolam 4 mg Route: IVP; Site: left antecubital; em6 20:39 Follow up: Response: No adverse reaction; RASS: Alert and Calm (0) em6 19:58 Drug: Versed (midazolam) 2 mg {Note: see patients chart for further information. .} em6 Route: IVP; Site: left antecubital; 20:35 Follow up: Response: No adverse reaction; RASS: Alert and Calm (0) em6 19:59 Drug: Etomidate 20 mg {Note: see patients chart for further information .} Route: IVP; em6 Site: left antecubital; 20:39 Follow up: Response: No adverse reaction; RASS: Alert and Calm (0) em6 20:39 Follow up: Response: No adverse reaction; RASS: Alert and Calm (0); a total of 11 mg of em6 etomidate given. wasted the remaining with charge nurse etienne. Disposition Summary: 07/04/22 21:02 Discharge Ordered Location: Home snw Condition: Stable snw Diagnosis - DISLOCATION OF INTERNAL LEFT HIP PROSTHESIS snw Followup: snw - With: Emergency Department - When: As needed - Reason: Worsening of condition Followup: snw - With: Private Physician - When: 2 - 3 days - Reason: Recheck today's complaints, Continuance of care, Re-evaluation by your physician Followup: snw - With: Raf Stock MD - When: 5 - 6 days - Reason: Recheck today's complaints, Continuance of care Discharge Instructions: - Discharge Summary Sheet snw - Hip Dislocation snw Forms: - Medication Reconciliation Form snw - Thank You Letter snw - Antibiotic Education snw - Prescription Opioid Use snw Prescriptions: - Mobic 7.5 mg Oral Tablet - take 1 tablet by ORAL route once daily take with food; 20 tablet; Refills: 0, snw Product Selection Permitted Signatures: Dispatcher [employer] EDMS Chase Azul MD MD cha Waters, Shelly, IMPLEMENTATION TECHNICIAN-C IMPLEMENTATION TECHNICIAN-Csnw Kait Hunt RN RN ss Martinez, Erika, RN RN em6 Corrections: (The following items were deleted from the chart) 20:55 20:04 Hip Left 2 View+RAD.RAD.BRZ ordered. EDMS EDMS 21:40 20:31 Midazolam 4 mg IVP once; to bedside given. em6 snw
--- NOTE | 2022-07-04 21:02 | ER ---
Nurse's Notes [facility] Name: Ghassan Soria Age: 77 yrs Sex: Male : 1945 Arrival Date: 07/04/2022 Time: 18:05 Bed 9 Private MD: Diagnosis: DISLOCATION OF INTERNAL LEFT HIP PROSTHESIS Presentation: 07/04 18:05 Chief complaint: Patient states: L hip pain that began suddenly. No injury. Pt reports ss that he felt like his hip may have "popped out". HX of bilateral hip replacement. Coronavirus screen: Client denies travel out of the [place] in the last 14 days. Ebola Screen: Patient denies exposure to infectious person. Patient denies travel to an Ebola-affected area in the 21 days before illness onset. Initial Sepsis Screen: Does the patient meet any 2 criteria? No. Patient's initial sepsis screen is negative. Does the patient have a suspected source of infection? No. Patient's initial sepsis screen is negative. Risk Assessment: Do you want to hurt yourself or someone else? Patient reports no desire to harm self or others. Onset of symptoms was July 04, 2022. 18:05 Method Of Arrival: EMS: [facility] ss 18:05 Acuity: LIZA 3 ss Historical: - Allergies: 18:08 No Known Allergies; ss - PMHx: 18:08 Parkinson's disease; ss - PSHx: 18:08 bilateral hip replacement; ss - Immunization history:: Adult Immunizations unknown. - Social history:: Smoking status: Patient denies any tobacco usage or history of. Screenin:15 Abuse screen: Denies threats or abuse. Nutritional screening: No deficits noted. em6 Tuberculosis screening: No symptoms or risk factors identified. Fall Risk Total Howell Fall Scale indicates No Risk (0-24 pts). Assessment: 18:15 General: Appears in no apparent distress. Behavior is cooperative. Pain: Complains of em6 pain in left leg Pain does not radiate. Pain currently is 5 out of 10 on a pain scale. Quality of pain is described as pressure. Neuro: Level of Consciousness is awake, alert, obeys commands, Oriented to person, place, time, situation. Cardiovascular: Patient's skin is warm and dry. Respiratory: Airway is patent Respiratory effort is even, unlabored, Respiratory pattern is regular, symmetrical. GI: No signs and/or symptoms were reported involving the gastrointestinal system. : No signs and/or symptoms were reported regarding the genitourinary system. EENT: No signs and/or symptoms were reported regarding the EENT system. Derm: No signs and/or symptoms reported regarding the dermatologic system. Musculoskeletal: Circulation, motion, and sensation intact. 19:15 Reassessment: Patient appears in no apparent distress at this time. No changes from em6 previously documented assessment. Patient and/or family updated on plan of care and expected duration. Pain level reassessed. Patient is alert, oriented x 3, equal unlabored respirations, skin warm/dry/pink. 19:54 Reassessment: started reduction of the left hip. providers, charge nurse, respiratory em6 therapist at bedside. see patients chart for further information on vital signs, alertness and pertinent patient information. 20:20 Reassessment: Patient is alert, oriented x 3, equal unlabored respirations, skin em6 warm/dry/pink. post reduction. informed provider patient is fully awake. no new orders. Neuro: Level of Consciousness is awake, alert, obeys commands, Oriented to person, place, time, situation. Respiratory: Airway is patent Respiratory effort is even, unlabored, Respiratory pattern is regular, symmetrical, Breath sounds are clear bilaterally. 21:22 Reassessment: walked 10 ft with patient. patient tolerated walk. states no pain and no em6 discomfort. Pain: Denies pain. Neuro: Level of Consciousness is awake, alert, obeys commands, Oriented to person, place, time, situation. Respiratory: Airway is patent Respiratory effort is even, unlabored, Respiratory pattern is regular, symmetrical, Breath sounds are clear bilaterally. Vital Signs: 18:05 BP 120 / 71; Pulse 63; Resp 18; Temp 98.1(O); Pulse Ox 100% on R/A; Weight 74.84 kg; ss 18:33 BP 124 / 65; Pulse 64; Resp 16; Pulse Ox 100% on R/A; em6 20:30 BP 120 / 66; Pulse 68; Resp 16; Pulse Ox 100% on 3 lpm NC; em6 21:00 BP 116 / 68; Pulse 70; Resp 16; Pulse Ox 100% on R/A; em6 ED Course: 18:05 Patient arrived in ED. snw 18:05 Lizett Salvador FNP-C is PHCP. snw 18:05 Johny Mariee MD is Attending Physician. snw 18:08 Triage completed. ss 18:08 Arm band placed on right wrist. ss 18:15 Bed in low position. Call light in reach. Side rails up X 1. Pulse ox on. NIBP on. Warm em6 blanket given. 18:19 Faby Johns RN is Primary Nurse. em6 18:22 XRAY Pelvis In Process Unspecified. EDMS 19:30 Consent for conscious sedation explained by physician, signed by patient. em6 19:30 Inserted saline lock: 20 gauge in left antecubital area, using aseptic technique. em6 19:54 Assist provider with reduction of left pathologic or non traumatic hip using em6 manipulation, Set up for procedure. Performed by Raf Stock MD Patient tolerated well. 21:03 Raf Stock MD is Referral Physician. snw 21:25 IV discontinued, intact, bleeding controlled, No redness/swelling at site. Pressure em6 dressing applied. 21:26 Hip Left 1 View In Process Unspecified. EDMS 22:03 Primary Nurse role handed off by Faby Johns RN em6 22:03 Attending Physician role handed off by Johny Mariee MD em6 22:03 PHCP role handed off by Lizett Salvador FNP-C em6 Administered Medications: 18:33 Not Given (Patient Refused): Gloster (HYDROcodone-acetaminophen) 5 mg-325 mg 1 tabs PO em6 once 19:40 Drug: Zofran (Ondansetron) 4 mg Route: IVP; Site: left antecubital; em6 20:39 Follow up: Response: No adverse reaction em6 19:40 Drug: NS 0.9% 1000 ml Route: IV; Rate: 75 ml/hr; Site: left antecubital; em6 20:38 Follow up: Response: No adverse reaction; IV Status: Completed infusion; IV Intake: em6 1000ml ; Dr. elder ramos order to give the fluids bolus. 19:56 Drug: Midazolam 4 mg Route: IVP; Site: left antecubital; em6 20:39 Follow up: Response: No adverse reaction; RASS: Alert and Calm (0) em6 19:58 Drug: Versed (midazolam) 2 mg {Note: see patients chart for further information. .} em6 Route: IVP; Site: left antecubital; 20:35 Follow up: Response: No adverse reaction; RASS: Alert and Calm (0) em6 19:59 Drug: Etomidate 20 mg {Note: see patients chart for further information .} Route: IVP; em6 Site: left antecubital; 20:39 Follow up: Response: No adverse reaction; RASS: Alert and Calm (0) em6 20:39 Follow up: Response: No adverse reaction; RASS: Alert and Calm (0); a total of 11 mg of em6 etomidate given. wasted the remaining with charge nurse etienne. Medication: 21:26 VIS not applicable for this client. em6 Intake: 20:38 IV: 1000ml; Total: 1000ml. em6 Outcome: 21:02 Discharge ordered by . snw 21:25 Discharged to home via wheelchair. em6 21:25 Condition: stable 21:25 Discharge instructions given to patient, Instructed on discharge instructions, follow up and referral plans. medication usage, Demonstrated understanding of instructions, follow-up care, medications, Prescriptions given X 1. 21:26 Patient left the ED. em6 22:17 Patient left the ED. em6 Signatures: Dispatcher [employer] EDMS Lizett Salvador, CHECK CLERK-C CHECK CLERK-Kait Chao, ALYSSA RN Faby Kelly RN RN em6 Corrections: (The following items were deleted from the chart) 20:36 20:20 Reassessment: Patient is alert, oriented x 3, equal unlabored respirations, skin em6 warm/dry/pink. em6 21:25 19:54 Reassessment: started reduction of the left hip. providers, charge nurse, em6 respiratory at bedside. see patients chart for further information em6 21:58 19:54 Reassessment: started reduction of the left hip. providers, charge nurse, em6 respiratory at bedside. see patients chart for further information on vital signs, alertness and pertinent patient information em6 21:59 20:39 Response: No adverse reaction; RASS: Alert and Calm (0) em6 em6
--- NOTE | 2022-07-04 21:34 | RAD REPORT ---
EXAM DESCRIPTION: RAD - Hip Left 1 View - 07/04/2022 9:25 pm CLINICAL HISTORY: Hip dislocation FINDINGS: Previously described left hip dislocation has been reduced
--- NOTE | 2022-07-05 02:44 | CON ---
This is my first time seeing this patient to my knowledge. He is a 77-year-old male who had bilatera l hip replacement done at the age of 49, some 28 years ago, by another physician up in [place]. He s ays he has had 1 episode of dislocation since this time, but he does not remember which hip. Unfortu nately, he was working in the yard today and apparently stepped awkwardly and had pain in his hip. Walter pryor was then brought to the Emergency Department where x-rays were taken, which demonstrated a left tot al hip arthroplasty, which has been dislocated. He is neurovascularly intact to his foot. He is andrew y lucid and understands when I speak with him about it. He denies any other injury. Conscious sedat ion was achieved, after informed consent was obtained by Dr. Azul and consent for reduction is ob tained for the procedure. After he was adequately sedated by Dr. Azul, counter pressure and trac tion at 90 degrees of flexion are used and relocation is felt. We await x-rays, but anticipate that these will be concentric relocation. Hopefully, this is a one time event and this would not lead to further problems apparently caused by an awkward step and perhaps a fall. He can follow up me if alvaro ired; however, if he does have a repeat dislocation, the age of the hips more or less implies that he may have some new problem with the hip, which has developed over the years. This has been explained to him and all of his questions are otherwise answered. /JAI Voice ID: [id number] Report ID: [id number]
[2022-07-05 04:47] VITALS: TEMP 98.1; O2SAT 100
[2022-07-05 05:04] VITALS: BP 116/68
== END 2022-07-04 22:17 | disposition home or self-care (01) ==
LOC: ER 17:57
PROC: 0SWBXJZ Revision of Synthetic Substitute in Left Hip Joint, External Approach (ICD-10-PCS; principal; 2022-07-04)
DX: T84.021A Dislocation of internal left hip prosthesis, initial encounter (principal); Z96.643 Presence of artificial hip joint, bilateral; G20 Parkinson's disease
CPT/HCPCS: 72170; 96361; 96374; 96375; 99284; J2250; J2405; J7030

== ENCOUNTER 2024-07-09 23:05 | Emergency (ER) | payer OTHER ==
[2024-07-09] MEDS ORDERED: ONDANSETRON 4 MG/2 ML VIAL ONE (23:49)
[2024-07-09] MEDS ORDERED: MORPHINE 2 MG/ML SYR ONE (23:50)
[2024-07-09] MEDS ORDERED: MORPHINE 4 MG/ML SYR ONE (23:50)
--- NOTE | 2024-07-10 00:04 | RAD REPORT ---
EXAM DESCRIPTION: Pelvis RadLex: XR PELVIS 1-2 VIEWS CLINICAL HISTORY: left hip dislocation. COMPARISON: None. TECHNIQUE: Single view AP pelvic radiograph. FINDINGS: Superior displacement of the femoral component of the left total hip arthroplasty. The acetabular com ponent appears well aligned. Right total hip arthroplasty alignment is maintained. No acute fracture is visualized. No sacroiliac or pubic symphyseal joint space widening. No concerning osseous lesion or avascular necrosis. IMPRESSION: Superior displacement of the femoral component of the left total hip arthroplasty. Electronically signed by: Isadora Silva MD 07/10/2024 12:00 AM [facility] Due to temporary technical issues with the PACS/[employer] reporting system, reports are being lenore d by the in-house radiologist without review as a courtesy to ensure prompt reporting the interpreting radiologist is fully responsible for the content of the report. Transcribed Date/Time: 07/10/2024 12:04 AM
[2024-07-10 00:24] LABS: Anion Gap 9.6 mEq/L (5.0-15.0); Potassium 3.6 mEq/L (3.5-5.1)
[2024-07-10 00:28] LABS: Absolute Eosinophils 0.1 K/uL (0-0.5); Absolute Lymphocytes (CBC) 0.5 K/uL (0.7-4.9); Absolute Monocytes 0.3 K/uL (0.1-1.3); Absolute Neutrophil 4.8 K/uL (1.8-8.0); Basophils % 0.3 % (0-1.3); Eosinophils % 1.4 % (0-4.4); Hematocrit 36.5 % (39.6-49.0); Hemoglobin 12.1 g/dL (13.6-17.9); Lymphocytes % 8.9 % (15.3-44.8); MCH 32.7 pg (27.0-35.0); MCHC 33.2 g/dL (32.0-36.0); MCV 98.5 fL (80-100); Neutrophils % 83.4 % (41.7-73.7); Platelets 131 thou/uL (152-406)
[2024-07-10] MEDS ORDERED: ETOMIDATE 20 MG/10 ML VIAL IV ONE (01:54)
[2024-07-10] MEDS ORDERED: NA CHLORIDE 0.9% 500 ML ONE (01:55)
--- NOTE | 2024-07-10 03:25 | EDPHYS ---
Physician Documentation [facility] Name: Ghassan Soria Age: 79 yrs Sex: Male : 1945 Arrival Date: 07/09/2024 Time: 23:05 Bed 4 Private MD: ED Physician Cesar Cabrales HPI: 07/09 23:21 This 79 yrs old Male presents to ER via Unassigned with complaints of left sp4 hip dislocation . 07/10 22:34 Patient presents with EMS for acute left hip dislocation after he was pushed by his dog.sp4 Historical: - Allergies: 07/09 23:57 No Known Allergies; jb4 - PMHx: 23:57 Hearing Loss; Parkinson's disease; uses hearing aids; jb4 - PSHx: 23:57 bilateral hip replacement; jb4 - Immunization history:: Adult Immunizations up to date. - Infectious Disease History:: Denies. - Social history:: Smoking status: Patient denies any tobacco usage or history of. - Family history:: not pertinent. ROS: 07/10 22:34 Constitutional: Negative for fever, chills, and weight loss, positive for left hip pain sp4 left hip deformity All other systems are negative, Exam: 22:34 Constitutional: This is a well developed, well nourished patient who is awake, alert, sp4 moderate distress Head/Face: Normocephalic, atraumatic. Eyes: Pupils equal round and reactive to light, extra-ocular motions intact. Lids and lashes normal. Conjunctiva and sclera are not injected. Cornea within normal limits. Periorbital areas with no swelling, redness, or edema. ENT: Nares patent. No nasal discharge, no septal abnormalities noted. Tympanic membranes are normal and external auditory canals are clear. Oropharynx with no redness, swelling, or masses, exudates, or evidence of obstruction, uvula midline. Mucous membranes moist. Neck: Trachea midline, no thyromegaly or masses palpated, and no cervical lymphadenopathy. Supple, full range of motion without nuchal rigidity, or vertebral point tenderness. Chest/axilla: Normal chest wall appearance and motion. Nontender with no deformity. No lesions are appreciated. Cardiovascular: Regular rate and rhythm with a normal S1 and S2. No gallops, murmurs, or rubs. Normal PMI, no JVD. No pulse deficits. Respiratory: Lungs have equal breath sounds bilaterally, clear to auscultation and percussion. No rales, rhonchi or wheezes noted. No increased work of breathing, no retractions or nasal flaring. Abdomen/GI: Soft, with normal bowel sounds. No distension or tympany. No guarding or rebound. No evidence of tenderness throughout. Back: No spinal tenderness. No costovertebral tenderness. Skin: Warm, dry with normal turgor. Normal color with no rashes, no lesions, and no evidence of cellulitis. MS/ Extremity: Pulses equal, no cyanosis. Neurovascular intact. Positive for left hip deformity indicative of hip dislocation. Intact peripheral pulses Neuro: Awake and alert, GCS 15, oriented to person, place, time, and situation. Cranial nerves II-XII grossly intact. Motor strength 5/5 in all extremities. Sensory grossly intact. Psych: Awake, alert, with orientation to person, place and time. Behavior, mood, and affect are within normal limits Vital Signs: 07/09 23:30 BP 131 / 67; Pulse 62; Resp 16; Temp 98.4(O); Pulse Ox 97% ; Weight 83.91 kg (R); jb4 Height 5 ft. 8 in. (R); 07/10 01:30 BP 156 / 86; Pulse 61; Resp 16; Pulse Ox 97% on R/A; jb4 03:05 BP 131 / 67; Pulse 60; Resp 16; Pulse Ox 99% on R/A; jb4 07/09 23:30 Body Mass Index 28.13 (83.91 kg, 172.72 cm) jb4 [place] Coma Score: 22:34 Eye Response: spontaneous(4). Motor Response: obeys commands(6). Verbal Response: sp4 oriented(5). Total: 15. Procedures: 02:05 Reduction: of the left hip - Left superior prosthetic hip dislocation , using traction, sp4 manipulation, traction , Immobilized with left immobilized . Patient tolerated well. Post reduction film - reveals normal alignment. Done under moderate sedation . Procedural sedation: Pre-procedure assessment: the patient has been NPO 4 hour(s) prior to arrival, ASA physical classification: II - mild/mod systemic disease that does not interfere with daily routines, Airway assessment: able to hyperextend neck, able to maintain airway, can open mouth without difficulty, Mallampati classification of tongue size: III - uvula can be visualized, but faucial pillars and soft palate are not appreciated, Monitoring during procedure: sales officer, continuous pulse oximetry, nurse at bedside at all times, Medications employed: Etomidate, 20 mg(s), Alternatives to procedural sedation discussed for Left hip reduction , Post-procedure assessment: the patient is moderately sedated, Ramirez sedation score: 4 - brisk response to a light glabellar tap, Respiratory status: requires supplemental oxygen to maintain acceptable oxygen saturation, a reversal agent was not used, Total intra sedation time is 26 min . MDM: 07/09 23:23 Medical Screening Exam initiated sp4 07/10 02:05 ED course: Initial - EXAM DESCRIPTION: Pelvis RadLex: XR PELVIS 1-2 VIEWS CLINICAL sp4 HISTORY: left hip dislocation. COMPARISON: None. TECHNIQUE: Single viewAP pelvic radiograph. FINDINGS: Superior displacement of the femoral component of the left total hip arthroplasty. The acetabular component appears well aligned. Right total hip arthroplasty alignment is maintained. No acute fracture is visualized. No sacroiliac or pubic symphyseal joint space widening. No concerning osseous lesion or avascular necrosis. IMPRESSION: Superior displacement of the femoral component of the left total hip arthroplasty. 03:26 ED course: After Reduction - EXAM: XR Pelvis, 1 or 2 Views CLINICAL HISTORY: The sp4 patient is 79 years old and is Male; left hip reduction TECHNIQUE: Frontal view of the pelvis. COMPARISON: Pelvic radiograph July 09, 2024 FINDINGS: BONES/JOINTS: Successful reduction of previously demonstrated dislocated left hip prosthesis. Bilateral hip prostheses are present. The hardware is engaged. No acute fracture. SOFT TISSUES: Unremarkable. IMPRESSION: Successful reduction of previously demonstrated dislocated left hip prosthesis. . 22:34 Differential diagnosis: dislocation, closed fracture, contusion, abrasion, tendonitis. sp4 Data reviewed: vital signs, nurses notes, EMS record, old medical records, radiologic studies, plain films. Consideration of Admission/Observation Escalation of care including admission/observation considered. ED course: Left hip was successfully reduced under moderate sedation. Patient stable for discharge home.. 07/09 23:22 Order name: Basic Metabolic Panel; Complete Time: 02:14 sp4 07/09 23:22 Order name: CBC with Diff; Complete Time: 02:14 sp4 07/09 23:22 Order name: XRAY Pelvis; Complete Time: 02:14 sp4 07/10 02:03 Order name: Pelvis XRAY sp4 07/09 23:22 Order name: Labs collected and sent; Complete Time: 23:55 sp4 07/09 23:23 Order name: Moderate Sedation; Complete Time: 02:14 sp4 Administered Medications: 07/09 23:54 Drug: morphine IVP or IV 6 mg IVP once over 4 mins Route: IVP; Infused Over: 4 mins; jb4 Site: left antecubital; 07/10 00:20 Follow up: Response: No adverse reaction; Marked relief of symptoms; RASS: Alert and ha1 Calm (0) 07/09 23:55 Drug: Ondansetron IVP 4 mg IVP once; over 2 minutes Route: IVP; Site: left antecubital; jb4 07/10 00:20 Follow up: Response: No adverse reaction ha1 02:13 Drug: Etomidate IVP 20 mg IVP once Route: IVP; Site: left antecubital; 4 03:00 Follow up: Response: No adverse reaction; RASS: Alert and Calm (0) ha1 02:14 Drug: NS 0.9% IV 500 ml 500 ml IV at 1 bolus once; to be given as a bolus over 30 jb4 minutes Volume: 500 ml; Route: IV; Rate: 1 bolus; Site: left antecubital; 03:00 Follow up: Response: No adverse reaction; IV Status: Completed infusion; IV Intake: ha1 500ml Disposition Summary: 07/10/24 03:25 Discharge Ordered Notes: Location: Home sp4 Problem: new sp4 Symptoms: have improved sp4 Condition: Stable sp4 Diagnosis - Superior dislocation of the Left Prosthetic Hip sp4 Followup: sp4 - With: Private Physician - When: 7 - 10 days - Reason: Recheck today's complaints Discharge Instructions: - Discharge Summary Sheet sp4 - Hip Dislocation, [id number] sp4 Forms: - Patient Portal Instructions sp4 Signatures: Dispatcher [employer] Pedro Burciaga RN RN jb4 Cesar Cabrales MD MD sp4 Emily Solorzano RN ha1 Corrections: (The following items were deleted from the chart) 07/09 23:23 23:23 BASIC METABOLIC PANEL+C.LAB.BRZ ordered. EDMS EDMS : CBC+H.LAB.BRZ ordered. EDMS EDMS : Pelvis+RAD.RAD.BRZ ordered. EDMS EDMS
--- NOTE | 2024-07-10 03:25 | ER ---
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 It is shortened and internally rotated. 23:20 Coronavirus screen: At this time, the client does not indicate any symptoms associated jb4 with coronavirus-19. Ebola Screen: No symptoms or risks identified at this time. 23:20 Method Of Arrival: EMS: [facility] 23:30 Initial Sepsis Screen: Does the patient meet any 2 criteria? No. Patient's initial jb4 sepsis screen is negative. Does the patient have a suspected source of infection? No. Patient's initial sepsis screen is negative. Risk Assessment: Do you want to hurt yourself or someone else? Patient reports no desire to harm self or others. Onset of symptoms was July 09, 2024. Transition of care: patient was not received from another setting of care. 23:30 Acuity: LIZA 3 jb4 Triage Assessment: 23:30 General: Appears in no apparent distress. uncomfortable, Behavior is calm, cooperative, jb4 appropriate for age. Pain: Complains of pain in Left hip Pain does not radiate. Pain currently is 9 out of 10 on a pain scale. Neuro: Level of Consciousness is awake, alert, obeys commands, Oriented to person, place, time, situation. Cardiovascular: Patient's skin is warm and dry. Respiratory: Airway is patent Respiratory effort is even, unlabored, Respiratory pattern is regular, symmetrical. Derm: Skin is intact, Skin is pink, warm \T\ dry. Musculoskeletal: Circulation, motion, and sensation intact. Range of motion: intact in all extremities. Historical: - Allergies: 23:57 No Known Allergies; jb4 - PMHx: 23:57 Hearing Loss; Parkinson's disease; uses hearing aids; jb4 - PSHx: 23:57 bilateral hip replacement; jb4 - Immunization history:: Adult Immunizations up to date. - Infectious Disease History:: Denies. - Social history:: Smoking status: Patient denies any tobacco usage or history of. - Family history:: not pertinent. Screenin/12 03:05 [facility] ED Fall Risk Assessment (Adult) History of falling in the last 3 months, jb4 including since admission Yes- single mechanical fall (1 pt) Confusion or Disorientation No (0 pts) Intoxicated or Sedated No (0 pts) Impaired Gait No (0 pts) Mobility Assist Device Used No (0 pt) Altered Elimination No (0 pt) Score/Fall Risk Level 0 - 2 = Low Risk Oriented to surroundings, Maintained a safe environment. Abuse screen: Denies threats or abuse. Nutritional screening: No deficits noted. Tuberculosis screening: No symptoms or risk factors identified. Assessment: 02:15 Reassessment: Provider successfully relocated pt's left hip. Pt shows no s/s of pain or jb4 distress at this time. 03:04 Reassessment: Patient appears in no apparent distress at this time. Patient and/or jb4 family updated on plan of care and expected duration. Pain level reassessed. Patient is alert, oriented x 3, equal unlabored respirations, skin warm/dry/pink. Pt ambulated to lobby with steady gait. Refused to wait for Disposition. 03:10 Reassessment: patient left before signing discharge papers. ha1 Vital Signs: 07/09 23:30 BP 131 / 67; Pulse 62; Resp 16; Temp 98.4(O); Pulse Ox 97% ; Weight 83.91 kg (R); jb4 Height 5 ft. 8 in. (R); 07/10 01:30 BP 156 / 86; Pulse 61; Resp 16; Pulse Ox 97% on R/A; jb4 03:05 BP 131 / 67; Pulse 60; Resp 16; Pulse Ox 99% on R/A; jb4 07/09 23:30 Body Mass Index 28.13 (83.91 kg, 172.72 cm) jb4 [place] Coma Score: 22:34 Eye Response: spontaneous(4). Motor Response: obeys commands(6). Verbal Response: sp4 oriented(5). Total: 15. ED Course: 07/09 23:19 Patient arrived in ED. vk 23:21 Cesar Cabrales MD is Attending Physician. sp4 23:30 Arm band placed on right wrist. jb4 23:37 Pedro Lewis, RN is Primary Nurse. jb4 23:39 XRAY Pelvis In Process Unspecified. EDMS 23:57 Triage completed. jb4 07/10 02:00 Assisted provider with: Conscious sedation. jb4 02:15 Pelvis XRAY In Process Unspecified. EDMS 02:45 IV discontinued, intact, bleeding controlled, No redness/swelling at site. Pressure jb4 dressing applied. 03:05 Patient has correct armband on for positive identification. Bed in low position. Call jb4 light in reach. Side rails up X 1. Provided Education on: plan of care. Administered Medications: 07/09 23:54 Drug: morphine IVP or IV 6 mg IVP once over 4 mins Route: IVP; Infused Over: 4 mins; 4 Site: left antecubital; 07/10 00:20 Follow up: Response: No adverse reaction; Marked relief of symptoms; RASS: Alert and ha1 Calm (0) 07/09 23:55 Drug: Ondansetron IVP 4 mg IVP once; over 2 minutes Route: IVP; Site: left antecubital; jb4 07/10 00:20 Follow up: Response: No adverse reaction ha1 02:13 Drug: Etomidate IVP 20 mg IVP once Route: IVP; Site: left antecubital; 4 03:00 Follow up: Response: No adverse reaction; RASS: Alert and Calm (0) ha1 02:14 Drug: NS 0.9% IV 500 ml 500 ml IV at 1 bolus once; to be given as a bolus over 30 jb4 minutes Volume: 500 ml; Route: IV; Rate: 1 bolus; Site: left antecubital; 03:00 Follow up: Response: No adverse reaction; IV Status: Completed infusion; IV Intake: ha1 500ml Medication: 03:36 VIS not applicable for this client. ha1 Intake: 03:00 IV: 500ml; Total: 500ml. ha1 Outcome: 03:10 Condition: stable ha1 03:10 Discharged to home ambulatory, ha1 03:10 Discharge instructions given to patient, Instructed on discharge instructions, follow up and referral plans. Demonstrated understanding of instructions, follow-up care, 03:25 Discharge ordered by sp4 03:36 Patient left the ED. ha1 Signatures: Dispatcher [employer] EDMS Joshua, Pedro, RN RN jb4 Emily Solorzano RN RN ha1 Cesar Cabrales MD MD sp4 January Maguire
[2024-07-10 03:41] VITALS: TEMP 98.4
[2024-07-10 03:44] VITALS: BP 131/67; O2SAT 99
--- NOTE | 2024-07-10 06:34 | RAD REPORT ---
EXAM: XR Pelvis, 1 or 2 Views CLINICAL HISTORY: The patient is 79 years old and is Male; left hip reduction TECHNIQUE: Frontal view of the pelvis. COMPARISON: Pelvic radiograph July 09, 2024 FINDINGS: BONES/JOINTS: Successful reduction of previously demonstrated dislocated left hip prosthesis. B ilateral hip prostheses are present. The hardware is engaged. No acute fracture. SOFT TISSUES: Unremarkable. IMPRESSION: Successful reduction of previously demonstrated dislocated left hip prosthesis. Electronically signed by: Xuan Villanueva MD 07/10/2024 02:40 AM [facility] Due to temporary technical issues with the [employer] reporting system, reports are being lenore d by the in-house radiologist without review as a courtesy to ensure prompt reporting the interpreting radiologist is fully responsible for the content of the report. Transcribed Date/Time: 07/10/2024 6:34 AM
== END 2024-07-10 03:36 | disposition home or self-care (01) ==
LOC: ER 23:05
DX: T84.021A Dislocation of internal left hip prosthesis, initial encounter (principal); H91.93 Unspecified hearing loss, bilateral; G20.A1 Parkinson's disease without dyskinesia, without mention of fluctuations; W54.1XXA Struck by dog, initial encounter; Y93.9 Activity, unspecified; Y92.9 Unspecified place or not applicable; Z96.643 Presence of artificial hip joint, bilateral
CPT/HCPCS: 96361; 85025; 80048; 36415; 72170 ×2; 96375; 96374; 99284; J2270; J2405; J7040

== ENCOUNTER 2025-03-09 16:16 | Emergency (ER) | payer OTHER ==
--- NOTE | 2025-03-09 18:14 | EDPHYS ---
Physician Documentation [facility] Name: Ghassan Soria Age: 79 yrs Sex: Male : 1945 Arrival Date: 03/09/2025 Time: 16:16 Bed IW1 Private MD: ED Physician Chase Azul HPI: 03/09 17:55 This 79 yrs old Male presents to ER via Ambulatory with complaints of Knee Pain - left. kb 17:55 Patient is a 79-year-old male with a history of pseudogout who presents for pain and kb swelling to left knee that started 3 days ago. States he has had this in the past, was seen by Ortho and had fluid extracted and a shot into the joint. Denies fever. Ambulates with crutches.. Historical: - Allergies: 17:07 No Known Allergies; dd2 - PMHx: 17:07 Hearing Loss; Parkinson's disease; uses hearing aids; dd2 - PSHx: 17:07 bilateral hip replacement; dd2 - Immunization history:: Adult Immunizations up to date. - Infectious Disease History:: Denies. - Social history:: Smoking status: Patient denies any tobacco usage or history of. ROS: 18:12 Constitutional: As per HPI kb Exam: 18:12 Constitutional: This is a well developed, well nourished patient who is awake, alert, kb and in no acute distress. Head/Face: Normocephalic, atraumatic. ENT: Moist Mucous membranes Cardiovascular: Regular rate Respiratory: Respirations even and unlabored. No increased work of breathing. Talking in full sentences Skin: Warm, dry with normal turgor. Normal color. Neuro: Awake and alert, GCS 15, oriented to person, place, time, and situation. 18:12 Musculoskeletal/extremity: Extremities: grossly normal except: noted in the left knee: pain, swelling, tenderness, ROM: limited active range of motion due to pain, Sensation intact. Weight bearing: can bear weight with assistance only, Vital Signs: 17:02 BP 132 / 76; Pulse 76; Resp 17; Temp 97.6; Pulse Ox 99% on R/A; Pain 10/10; dd2 17:02 Pain Scale: Adult dd2 MDM: 16:20 Medical Screening Exam initiated kb 18:12 Differential diagnosis: gout, cellulitis, septic arthritis, arthritis, pseudogout. Data kb reviewed: vital signs, nurses notes. Independent interpretation of the following test(s) in the Emergency Department X-Ray: My interpretation is knee xray considered but pt has no bony tenderness, reports injury. Counseling: I had a detailed discussion with the patient and/or guardian regarding the historical points, exam findings, and any diagnostic results supporting the discharge/admit diagnosis, the need for outpatient follow up, a orthopedic surgeon, to return to the emergency department if symptoms worsen or persist or if there are any questions or concerns that arise at home. 18:37 I considered the following discharge prescriptions or medication management in the emergency department I discussed and recommended Over The Counter medications, Discussed prescription medications for pain management. Patient states he has a procedure scheduled for Sunday so he cannot take any medications that would be prescribed.. Administered Medications: 18:40 Drug: Dexamethasone IM 10 mg IM once Route: IM; Site: right ventrogluteal; ap3 19:00 Follow up: Response: No adverse reaction ll1 Disposition Summary: 03/09/25 18:13 Discharge Ordered Notes: Location: Home kb Condition: Stable kb Diagnosis - Pain in left knee kb Followup: kb - With: Emergency Department - When: As needed - Reason: Worsening of condition Followup: kb - With: Private Physician - When: 2 - 3 days - Reason: Recheck today's complaints, Continuance of care, Re-evaluation by your physician Discharge Instructions: - Discharge Summary Sheet kb - Gout, [id number] kb - Acute Knee Pain, Adult, [id number] kb Forms: - Medication Reconciliation Form kb - Antibiotic Education kb - Prescription Opioid Use kb - Patient Portal Instructions kb - Leadership Thank You Letter kb Addendum: 03/12/2025 14:33 Co-signature as Attending Physician, Chase Azul MD I agree with the assessment and c cook plan of care. Signatures: Luci Knowles, AARON-Nuno RODRÍGUEZP-Chase Abbasi MD MD cha Prokisch, Amanda RN RN ap3 NAHUM ALEXANDER RN RN dd2 Orville Barajas RN ll1
--- NOTE | 2025-03-09 18:14 | ER ---
Nurse's Notes [facility] Name: Ghassan Soria Age: 79 yrs Sex: Male : 1945 Arrival Date: 03/09/2025 Time: 16:16 Bed IW1 Private MD: Diagnosis: Pain in left knee Presentation: 03/09 17:02 Chief complaint: Patient states: HE HAS 'PSEUDOGOUT AND HAVING LT KNEE SWELLING AND dd2 PAIN SINCE SUNDAY'. Coronavirus screen: At this time, the client does not indicate any symptoms associated with coronavirus-19. Ebola Screen: No symptoms or risks identified at this time. Initial Sepsis Screen: Does the patient meet any 2 criteria? No. Patient's initial sepsis screen is negative. Does the patient have a suspected source of infection? No. Patient's initial sepsis screen is negative. Risk Assessment: Do you want to hurt yourself or someone else? Patient reports no desire to harm self or others. Onset of symptoms was March 07, 2025. 17:02 Method Of Arrival: Ambulatory dd2 17:02 Acuity: LIZA 3 dd2 Triage Assessment: 17:07 General: Appears in no apparent distress. uncomfortable, Behavior is calm, cooperative, dd2 appropriate for age. Pain: Complains of pain in left knee. Musculoskeletal: Circulation, motion, and sensation intact. Range of motion: intact in all extremities, Swelling present in left knee Reports pain in left knee. Historical: - Allergies: 17:07 No Known Allergies; dd2 - PMHx: 17:07 Hearing Loss; Parkinson's disease; uses hearing aids; dd2 - PSHx: 17:07 bilateral hip replacement; dd2 - Immunization history:: Adult Immunizations up to date. - Infectious Disease History:: Denies. - Social history:: Smoking status: Patient denies any tobacco usage or history of. Screenin:52 [facility] ED Fall Risk Assessment (Adult) History of falling in the last 3 months, ll1 including since admission No falls in past 3 months (0 pts) Confusion or Disorientation No (0 pts) Intoxicated or Sedated No (0 pts) Impaired Gait No (0 pts) Mobility Assist Device Used No (0 pt) Altered Elimination No (0 pt) Score/Fall Risk Level 0 - 2 = Low Risk Educated pt \T\ family on fall prevention, incl call for assistance when getting out of bed, Hourly rounding (assess needs \T\ fall precautionary measures) done. Abuse screen: Denies threats or abuse. Nutritional screening: No deficits noted. Tuberculosis screening: No symptoms or risk factors identified. Assessment: 18:52 Reassessment: No changes from previously documented assessment. Patient and/or family ll1 updated on plan of care and expected duration. Pain level reassessed. Patient is alert, oriented x 3, equal unlabored respirations, skin warm/dry/pink. Vital Signs: 17:02 BP 132 / 76; Pulse 76; Resp 17; Temp 97.6; Pulse Ox 99% on R/A; Pain 10/10; dd2 17:02 Pain Scale: Adult dd2 ED Course: 16:18 Patient arrived in ED. im 16:20 [facility] Know[facility]-C [facility] kb 16:20 Chase Azul MD is Attending Physician. kb 17:07 Triage completed. dd2 17:07 Arm band placed on right wrist. dd2 17:10 Provided Education on: ER procedures and process. ll1 18:52 Patient has correct armband on for positive identification. Bed in low position. ll1 18:52 No provider procedures requiring assistance completed. Patient did not have IV access ll1 during this emergency room visit. Administered Medications: 18:40 Drug: Dexamethasone IM 10 mg IM once Route: IM; Site: right ventrogluteal; ap3 19:00 Follow up: Response: No adverse reaction ll1 Medication: 18:59 VIS not applicable for this client. ll1 Outcome: 18:13 Discharge ordered by . kb 18:52 Patient left the ED. ll1 18:52 Discharged to home ambulatory, ll1 18:52 Condition: stable 18:52 Discharge instructions given to patient, Instructed on discharge instructions, follow up and referral plans. Demonstrated understanding of instructions, follow-up care, Signatures: Luci Knowles FNP-C FNP-Ckb Prokisch, Amanda, RN RN ap3 Orville Barajas RN RN ll1 Sultana Devlin DIANA, RN RN dd2
[2025-03-09 19:54] VITALS: BP 132/76; TEMP 97.6; O2SAT 99
== END 2025-03-09 18:52 | disposition home or self-care (01) ==
LOC: ER 16:16
DX: M25.562 Pain in left knee (principal); Z96.643 Presence of artificial hip joint, bilateral
CPT/HCPCS: 96372; 99284; J1100